=== PATIENT | male | born 1965 | race Caucasian/White ===

== ENCOUNTER 2017-12-02 18:28 | Emergency (ER) | payer OTHER ==
[~2017-12-02] VITALS: Ht 182.9 cm; Wt 105.8 kg
[~2017-12-02 18:28] MED LIST: ALPRAZOLAM0.5 MG PO; ATENOLOL25 MG PO; DICLOFENAC SODI75 MG PO; VITAMIN D PO
[2017-12-02 20:07] LABS: HEMATOCRIT 40.8 % (38.0-50.0); HEMOGLOBIN 14.2 G/DL (12.5-16.6); MCH 30.5 PG (29.0-34.0); MCHC 34.8 G/DL (30.0-36.0); MCV 87.7 FL (86-99); PLATELET COUNT 233 K/uL (156-360); RBC DIS.WIDTH-CV 12.8 % (11.8-14.6); RBC DIS.WIDTH-SD 41.1 % (39-53); RED BLOOD COUNT 4.65 M/uL (4.00-5.50); WHITE BLOOD COUNT 11.1 K/uL (4.1-10.2)
[2017-12-02 20:15] LABS: CHLORIDE 111 mEq/L (99-109); POTASSIUM 3.7 mEq/L (3.7-5.4); SODIUM 140 mEq/L (136-147)
[2017-12-02 20:16] LABS: GLUCOSE 94 mg/dL (70-99)
[2017-12-02 20:20] LABS: CREATININE 1.1 mg/dL (0.6-1.3); GFR ESTIMATE (CALCULATED) > 59 mL/min/ (58.99-99999)
[2017-12-02 20:21] LABS: UREA NITROGEN (BUN) 20 mg/dL (9-23)
[2017-12-03] MEDS ORDERED: MECLIZINE HCL25 MG PO (00:45)
[2017-12-03 00:51] VITALS: BP 157/86
== END 2017-12-03 00:52 | disposition home or self-care (01) ==
LOC: EME 18:28
DX: R42 Dizziness and giddiness (principal); R51 Headache; F17.200 Nicotine dependence, unspecified, uncomplicated; Z88.1 Allergy status to other antibiotic agents
CPT/HCPCS: 80048; 85027; 99281; 99284; J0780; J1100

== ENCOUNTER 2018-06-17 10:17 | Emergency (ER) | payer OTHER ==
[~2018-06-17] VITALS: Ht 182.9 cm; Wt 105.5 kg
[~2018-06-17 10:17] MED LIST changes: +MECLIZINE HCL25 MG PO
[2018-06-17 12:30] VITALS: BP 146/85
== END 2018-06-17 12:35 | disposition home or self-care (01) ==
LOC: EME 10:17
PROC: 0HQGXZZ Repair Left Hand Skin, External Approach (ICD-10-PCS; principal; 2018-06-17)
PROC: 3E0234Z Introduction of Serum, Toxoid and Vaccine into Muscle, Percutaneous Approach (ICD-10-PCS; 2018-06-17)
DX: S61.412A Laceration without foreign body of left hand, initial encounter (principal); W26.0XXA Contact with knife, initial encounter; Z88.1 Allergy status to other antibiotic agents
CPT/HCPCS: 99281; 99283